=== PATIENT | female | born 1980 | race Two or more races ===

== ENCOUNTER 2023-06-30 17:53 | Emergency (ER) | payer MEDICAID ==
[~2023-06-30] VITALS: Ht 170.2 cm; Wt 113.4 kg
[2023-06-30 18:06] VITALS: TEMP 98.1
[2023-06-30] MEDS: IV NS 0.9% 1,000 ML BAG IV ONE (18:10)
[2023-06-30 18:14] VITALS: BP 79/46; O2SAT 95
== END 2023-06-30 18:20 | disposition short-term general hospital (02) ==
LOC: ER 18:03
DX: R07.9 Chest pain, unspecified (principal); M54.9 Dorsalgia, unspecified; I10 Essential (primary) hypertension; V89.2XXA Person injured in unspecified motor-vehicle accident, traffic, initial encounter; Y93.89 Activity, other specified; Y92.89 Other specified places as the place of occurrence of the external cause; Y99.8 Other external cause status
CPT/HCPCS: 99285; J7030 ×2